=== PATIENT | female | born 1985 | race Caucasian/White ===

== ENCOUNTER 2016-06-28 08:55 | Emergency (ER) | payer BC ==
[~2016-06-28] VITALS: Ht 149.9 cm; Wt 82.0 kg
[2016-06-28 08:58] VITALS: BP_SYST 159; BP_DIAS 89; BP_DIAS 9; PULSE 104; RESP 16; TEMP 97.6; O2SAT 99
[2016-06-28] MEDS ORDERED: BIRTH CONTROL PO (09:37)
[2016-06-28] MEDS ORDERED: SODIUM CHLOR 0.9% 1000 ML INJ 1,000 ML IV SCH (09:40)
[2016-06-28] MEDS ORDERED: KETOROLAC TROMETHAMINE 30 MG/ML (IVP) VIAL IVP ONE (09:45)
[2016-06-28] MEDS ORDERED: ONDANSETRON HCL 4 MG/2 ML VIAL IVP ONE (09:45)
[2016-06-28] MEDS: SODIUM CHLORIDE 0.9% FLUSH 5 ML FLUSH IVF PRN ×2 (09:49→13:04)
[2016-06-28 09:57] LABS: AUTOMATED NEUTROPHIL # 8.2 TH/MM3 (1.8-7.7); BASOPHIL % 0.3 % (0.0-2.0); EOSINOPHIL # 0.2 TH/MM3 (0-0.4); EOSINOPHIL % 1.6 % (0.0-4.0); HEMATOCRIT 35.9 % (35.0-46.0); HEMO FLAGS DIFF FINAL; LYMPH % 15.2 % (9.0-44.0); LYMPHOCYTE # 1.6 TH/MM3 (1.0-4.8); MEAN CELL VOLUME 83.7 FL (80.0-100.0); MEAN CORPUSCULAR HEMOGLOBIN 28.4 PG (27.0-34.0); MEAN CORPUSCULAR HGB CONC 33.9 % (32.0-36.0); MONO % 5.2 % (0.0-8.0); NEUT % 77.7 % (16.0-70.0); PLATELET COUNT 345 TH/MM3 (150-450); RED BLOOD COUNT 4.29 MIL/MM3 (4.00-5.30); RED CELL DISTRIBUTION WIDTH 13.2 % (11.6-17.2); WHITE BLOOD COUNT 10.6 TH/MM3 (4.0-11.0)
--- NOTE | 2016-06-28 10:00 | PD ---
HPI Chief Complaint: Flank/Kidney Pain Time Seen by Provider: 09:24 Travel History International Travel<30 days: No Contact w/Intl Traveler<30days: No Traveled to known affect area: No History of Present Illness HPI Patient is a 30-year-old female who presents to emergency room with complaints of flank pain. Patient reports that she woke up with right-sided flank pain, reports that pain has been constant and unrelenting. Patient denies fevers or chills with flank pain. Patient denies hematuria. Patient reports urinary urgency and frequency with her symptoms. Patient reports history of kidney stones in the past, reports that she has been able to pass all her stones by herself. Patient reports that she has never needed any urological interventions for kidney stones. Patient denies fevers or chills. Patient denies nausea or vomiting. Patient with no other complaints. PFSH Past Medical History Medical History: Denies Significant Hx ?: Not Past Surgical History Surgical History: No Previous Surgery Family History Family History: Negative Social History Alcohol Use: No Tobacco Use: No Substance Use: No Allergies-Medications (Allergen,Severity, Reaction): Coded Allergies: No Known Allergies (Unverified , 06/28/16) Reported Meds & Prescriptions Reported Meds & Active Scripts Active Reported [ Control] 1 Tab PO HS Review of Systems General / Constitutional: No: Fever Eyes: No: Visual changes HENT: No: Headaches Cardiovascular: No: Chest Pain or Discomfort Respiratory: No: Shortness of Breath Gastrointestinal: Positive: Abdominal Pain (right-sided flank pain) Genitourinary: Positive: Urgency, Frequency, Dysuria, No: Hematuria Musculoskeletal: No: Pain Skin: No Rash Neurologic: No: Weakness Psychiatric: No: Depression Endocrine: No: Polydipsia Hematologic/Lymphatic: No: Easy Bruising Physical Exam Narrative GENERAL: No acute distress, nontoxic SKIN: Warm and dry. HEAD: Atraumatic. Normocephalic. ENT: No nasal bleeding or discharge. Mucous membranes pink and moist. NECK: Trachea midline. No JVD. CARDIOVASCULAR: Regular rate and rhythm. No murmur appreciated. RESPIRATORY: No accessory muscle use. Clear to auscultation. Breath sounds equal bilaterally. GASTROINTESTINAL: Abdomen soft, non-tender, nondistended. Hepatic and splenic margins not palpable. MUSCULOSKELETAL: No obvious deformities. No clubbing. No cyanosis. No edema. Patient with right-sided flank pain on exam NEUROLOGICAL: Motor grossly within normal limits. Normal speech. PSYCHIATRIC: Appropriate mood and affect; insight and judgment normal. Data Data Last Documented VS Vital Signs Date Time Temp Pulse Resp B/P Pulse Ox O2 Delivery O2 Flow Rate FiO2 06/28/16 11:03 16 06/28/16 11:02 64 117/62 100 Room Air 06/28/16 08:58 97.6 Orders Complete Blood Count With Diff (06/28/16 09:26) Comprehensive Metabolic Panel (06/28/16 09:26) Urinalysis - C+S If Indicated (06/28/16 09:26) Ct Abd/Pel W/O Iv Contrast (06/28/16 09:26) Iv Access Insert/Monitor (06/28/16 09:26) Ed Urine Pregnancytest Poc (06/28/16 09:26) Drug Screen, Random Urine (06/28/16 09:26) Ondansetron Inj (Zofran Inj) (06/28/16 09:45) Sodium Chlor 0.9% 1000 Ml Inj (Ns 1000 M (06/28/16 09:40) Sodium Chloride 0.9% Flush (Ns Flush) (06/28/16 09:45) Ketorolac Inj (Toradol Inj) (06/28/16 09:45) Urine Culture (06/28/16 09:43) Ceftriaxone Inj (Rocephin Inj) (06/28/16 11:45) Labs Laboratory Tests Test 06/28/16 09:43 White Blood Count 10.6 TH/MM3 Red Blood Count 4.29 MIL/MM3 Hemoglobin 12.2 GM/DL Hematocrit 35.9 % Mean Corpuscular Volume 83.7 FL Mean Corpuscular Hemoglobin 28.4 PG Mean Corpuscular Hemoglobin 33.9 % Concent Red Cell Distribution Width 13.2 % Platelet Count 345 TH/MM3 Mean Platelet Volume 6.9 FL Neutrophils (%) (Auto) 77.7 % Lymphocytes (%) (Auto) 15.2 % Monocytes (%) (Auto) 5.2 % Eosinophils (%) (Auto) 1.6 % Basophils (%) (Auto) 0.3 % Neutrophils # (Auto) 8.2 TH/MM3 Lymphocytes # (Auto) 1.6 TH/MM3 Monocytes # (Auto) 0.5 TH/MM3 Eosinophils # (Auto) 0.2 TH/MM3 Basophils # (Auto) 0.0 TH/MM3 CBC Comment DIFF FINAL Differential Comment Urine Color YELLOW Urine Turbidity HAZY Urine pH 5.5 Urine Specific [place] 1.022 Urine Protein 30 mg/dL Urine Glucose (UA) NEG mg/dL Urine Ketones NEG mg/dL Urine Occult Blood LARGE Urine Nitrite NEG Urine Bilirubin NEG Urine Urobilinogen LESS THAN 2.0 MG/DL Urine Leukocyte Esterase NEG Urine RBC /hpf Urine WBC 9 /hpf Urine Squamous Epithelial 3 /hpf Cells Urine Bacteria FEW /hpf Urine Mucus MANY /lpf Urine Yeast (Budding) FEW Microscopic Urinalysis Comment CULTURE INDICATED Sodium Level 142 MEQ/L Potassium Level 3.8 MEQ/L Chloride Level 110 MEQ/L Carbon Dioxide Level 23.8 MEQ/L Anion Gap 8 MEQ/L Blood Urea Nitrogen 9 MG/DL Creatinine 0.75 MG/DL Estimat Glomerular Filtration 92 ML/MIN Rate Random Glucose 104 MG/DL Calcium Level 9.1 MG/DL Total Bilirubin 0.3 MG/DL Aspartate Amino Transf 13 U/L (AST/SGOT) Alanine Aminotransferase 29 U/L (ALT/SGPT) Alkaline Phosphatase 82 U/L Total Protein 7.4 GM/DL Albumin 3.4 GM/DL Urine Opiates Screen NEG Urine Barbiturates Screen NEG Urine Amphetamines Screen NEG Urine Benzodiazepines Screen NEG Urine Cocaine Screen NEG Urine Cannabinoids Screen NEG MDM Medical Decision Making Medical Screen Exam Complete: Yes Emergency Medical Condition: Yes Interpretation(s) Vital Signs Date Time Temp Pulse Resp B/P Pulse Ox O2 Delivery O2 Flow Rate FiO2 06/28/16 08:58 97.6 104 16 159/89 99 Differential Diagnosis Kidney stone, pyelonephritis, cystitis, musculoskeletal pain, electrolyte abnormality, acute cholecystitis, acute appendicitis Narrative Course Patient is a 30-year-old female who presents to emergency room with complaints of right-sided flank pain. Patient reports that flank pain began this morning. Patient reports no hematuria but does admit to dysuria, urgency or frequency. Patient reports history of kidney stones in the past. IV line established, CBC, BMP, UA and CT abdomen and pelvis ordered for further evaluation of possible kidney stones. IV hydration as well as IV Toradol and Zofran ordered for patient. Will continue to evaluate patient. Patient reevaluated, patient feeling much better. CT abdomen and pelvis showing an obstructing right proximal ureteral stone which is 4.4 mm in size just beyond the UPJ. Patient with mild right-sided hydronephrosis. There is mild periureteral stranding. UA: Large occult blood, few bacteria, 9 white blood cells, patient given a dose of Rocephin ER and will be discharged on Macrobid. Patient will follow up with cultures from today. bun/cr: 9/0.75 Reviewed all labs and all studies with patient in detail. Patient given copy of her CAT scan report. Patient reports that she feels comfortable being discharged to home Patient will follow up with urologist as outpatient. Signs and symptoms of when to return to the emergency room reviewed with patient. Patient understands that she should not drive while taking narcotic pain medications. Patient thankful for care Diagnosis Primary Impression: Kidney stone on right side Additional Impressions: Hydronephrosis of right kidney UTI (urinary tract infection) Qualified Code: N30.01 - Acute cystitis with hematuria Hematuria Referrals: Rolf Camilo MD Patient Instructions: General Instructions Additional Instructions: Please call urologist first thing in the morning for follow-up. Please bring your CAT scan report to your doctor's office for follow-up on all studies from today Please complete full course of antibiotics, follow-up with your urine cultures from today Please strain your urine and bring your kidney stone to your urologist office for follow-up Return to ER immediately if you develop fever/chills, nausea or vomiting or intractable pain. Return to ER as needed Do not drive while taking narcotic pain medications Med/Other Pt SpecificInfo: Prescription(s) given Scripts Tamsulosin (Flomax)0.4 Mg Cap0.4 Mg PO HS #10 CAP Ref 0 Prov:Anahy Rushing DO 06/28/16 Oxycodone-Acetaminophen (Percocet)5-325 mg Tab1-2 Tab PO Q4H PRN (PAIN) #20 TAB Ref 0 Prov:Anahy Rushing DO 06/28/16 Ibuprofen 600 Mg Oek595 Mg PO Q6H PRN (Pain/Inflammation) #40 TAB Ref 0 Prov:Anahy Rushing DO 06/28/16 Nitrofurantoin Monohydrate Macrocrystals (Macrobid)100 Mg Nom342 Mg PO BID 10 Days Ref 0 Prov:Anahy Rushing DO 06/28/16 Disposition: 01 DISCHARGE HOME Condition: Stable Anahy Rushing DO Jun 28, 2016 10:00
[2016-06-28 10:10] LABS: BACTERIA, URINE FEW /hpf; BLOOD, URINE LARGE (NEG); COMMENT (UR) CULTURE INDICATED; CULTURE IF INDICATED CULTURE INDICATED; GLUCOSE,URINE NEG (NEG); KETONE, URINE NEG (NEG); MUCUS URINE MANY /lpf (OCC); NITRITE,URINE NEG (NEG); PH, URINE 5.5 (5.0-8.5); SQUAMOUS EPITHELIAL CELL URINE 3 /hpf (0-5); URINE COLOR YELLOW (YELLW/STRAW)
[2016-06-28 10:18] LABS: ALT (GPT) 29 U/L (10-53); ANION GAP 8 MEQ/L (5-15); AST (GOT) 13 U/L (15-37); BICARBONATE 23.8 MEQ/L (21.0-32.0); BLOOD UREA NITROGEN 9 MG/DL (7-18); CHLORIDE 110 MEQ/L (98-107); GLOMERULAR FILTRATION RATE 92 ML/MIN (>89); POTASSIUM 3.8 MEQ/L (3.5-5.1); SODIUM (NA) 142 MEQ/L (136-145)
[2016-06-28 10:20] LABS: ALKALINE PHOSPHATASE 82 U/L (45-117); TOTAL BILIRUBIN ADULT 0.3 MG/DL (0.2-1.0)
--- NOTE | 2016-06-28 10:31 | RADRPT ---
EXAM DATE/TIME: 06/28/2016 10:00 [facility] COMPARISON: No previous studies available for comparison. INDICATIONS : Right flank pain today. ORAL CONTRAST: No oral contrast ingested. RADIATION DOSE: 13.88 CTDIvol (mGy) MEDICAL HISTORY : Renal calculi. SURGICAL HISTORY : section. ENCOUNTER: Initial ACUITY: 1 day PAIN SCALE: 9/10 LOCATION: Right flank TECHNIQUE: Volumetric scanning of the abdomen and pelvis was performed. Using automated exposure control and ad justment of the mA and/or kV according to patient size, radiation dose was kept as low as reasonably achievable to obtain optimal diagnostic quality images. FINDINGS: Liver, gallbladder, spleen, pancreas, adrenal glands are unremarkable. Punctate nonobstructing left u pper pole renal this on image 34. There is mild right-sided hydronephrosis secondary to a proximal ur eteral calculus measuring 4.4 mm on image 66. There is mild periureteral stranding. There are no blad aracely calculi. Uterus and adnexa are unremarkable. Appendix normal. No evidence of bowel obstruction. N o free fluid or free air. Lung bases are clear. Osseous structures are intact. CONCLUSION: Obstructing right proximal ureteral stone just beyond the UPJ. Mild right-sided hydronephrosis. Mike Sung MD on June 28, 2016 at 10:28 Board Certified Radiologist. This report was verified electronically.
[2016-06-28 11:02] VITALS: BP 117/62; PULSE 64; RESP 16; O2SAT 100
[2016-06-28 11:29] LABS: AMPHETAMINE, URINE NEG (NEG); BARBITURATES, URINE NEG (NEG); COCAINE, URINE NEG (NEG)
[2016-06-28] MEDS ORDERED: cefTRIAXone INJ 1,000 MG in SODIUM CHLORIDE 0.9% INJ 100 ML IV ONE (11:45)
[2016-06-28] MEDS ORDERED: MACR100C2 PO (11:48)
[2016-06-28] MEDS ORDERED: TAMS5CAP PO (11:48)
[2016-06-28] MEDS ORDERED: IBUP-232 PO (11:48)
[2016-06-28] MEDS ORDERED: PERC5TAB12 PO (11:48)
[2016-06-28 12:00] VITALS: BP 115/63; PULSE 72; RESP 14; O2SAT 100
[2016-06-28] MEDS ORDERED: MORPHINE SULFATE 4 MG/ML INJ IV PUSH ONE (12:00)
[2016-06-28 13:00] VITALS: BP 101/67; PULSE 78; RESP 14; O2SAT 98
[2016-06-28 14:00] VITALS: BP 107/57; PULSE 68; RESP 16; O2SAT 9; O2SAT 97
[2016-06-28 14:06] VITALS: RESP 14
== END 2016-06-28 14:40 | disposition home or self-care (01) ==
LOC: NEPA 08:55
DX: N20.0 Calculus of kidney (principal); N39.0 Urinary tract infection, site not specified; N13.30 Unspecified hydronephrosis; N30.01 Acute cystitis with hematuria; B96.20 Unspecified Escherichia coli [E. coli] as the cause of diseases classified elsewhere
CPT/HCPCS: 74176; 80053; 80307; 81001; 84703; 85025; 87077; 87086; 87186; 96361; 96365; 96375; 99284; J0696; J1885; J2270; J2405; J7030